=== PATIENT | female | born 1950 | race Caucasian/White ===

== ENCOUNTER 2018-05-16 14:57 | Emergency (ER) | payer MEDICARE, BC ==
[~2018-05-16] VITALS: Ht 162.6 cm; Wt 56.4 kg
[2018-05-16 15:03] VITALS: TEMP 97.5
[2018-05-16] MEDS ORDERED: COZAAR 25MG25 MG/TAB PO (15:21)
[2018-05-16] MEDS ORDERED: FOLIC ACID 11 MG/TA1 PO (15:21)
[2018-05-16] MEDS ORDERED: INDERAL60 MG PO (15:21)
[2018-05-16] MEDS ORDERED: TREXALL10 MG PO (15:22)
[2018-05-16] MEDS ORDERED: INDERAL LA 60MG60 MG PO (15:22)
[2018-05-16 15:59] LABS: BASO % 0.1 % (0.0-2.0); GRAN # 8.2 (1.4-6.5); GRAN % 89.8 % (42.2-75.2); HEMATOCRIT 37.5 % (37.0-47.0); HEMOGLOBIN 12.5 g/dl (12.5-16.0); LYMPH # 0.7 (1.2-3.4); LYMPH % 7.6 % (20.0-51.0); MEAN CELL VOLUME 97 fl (80.0-100.0); MEAN CORPUSCULAR HEMOGLOBIN 32 pg (27.0-31.0); MEAN CORPUSCULAR HGB CONC 33 g/dl (33.0-37.0); MEAN PLATELET VOLUME 8.9 fl (7.4-10.4); MONO # 0.1 (0.1-0.6); MONO % 1.3 % (1.7-9.3); PLATELET COUNT 304 K/mm3 (130-400); RED BLOOD COUNT 3.88 M/mm3 (4.10-5.30); REDCELL DISTRIBUTION WIDTH-CV 14.2 % (11.5-14.5)
[2018-05-16 16:11] LABS: ALANINE AMINOTRANSFERASE 30 U/L (9-52); ALKALINE PHOSPHATASE 76 U/L (50-136); ANION GAP 5 mmol/L (7-16); AST,SGOT 21 U/L (15-37); BILIRUBIN,TOTAL 0.3 mg/dL (0.0-1.0); BLOOD UREA NITROGEN 13 mg/dL (7-17); CALCIUM 9.3 mg/dL (8.4-10.2); CARBON DIOXIDE 29 mmol/L (22-30); CHLORIDE 95 mmol/L (98-107); CREATININE, serum 0.82 mg/dL (0.52-1.25); GLUCOSE 122 mg/dL (74-106); MAGNESIUM 2.3 mg/dL (1.6-2.3); POTASSIUM 4.7 mmol/L (3.4-5.0); SODIUM 130 mmol/L (137-145); TOTAL PROTEIN 7.3 gm/dL (6.4-8.2)
[2018-05-16 16:14] LABS: C-REACTIVE PROTEIN < 0.5 mg/dL (0.0-0.9)
[2018-05-16 16:56] VITALS: BP 128/64; PULSE 62
[2018-05-16] MEDS ORDERED: NORCO 325 MG-51 TAB PO (16:56)
[2018-05-16] MEDS ORDERED: FLEXERIL5 MG PO (16:56)
[2018-05-16] MEDS ORDERED: PREDNISONE20 MG PO (18:06)
== END 2018-05-16 17:00 | disposition home or self-care (01) ==
LOC: COL.ER 14:57
PROVIDERS: Emergency Medicine
DX: M54.5 Low back pain (principal); M45.9 Ankylosing spondylitis of unspecified sites in spine
CPT/HCPCS: J1885